=== PATIENT | female | born 1995 | race Caucasian/White ===

== ENCOUNTER 2017-05-11 12:39 | Emergency (ER) | payer BC ==
[~2017-05-11] VITALS: Ht 154.9 cm; Wt 70.3 kg
[2017-05-11 12:40] VITALS: BP 130/82
== END 2017-05-11 16:16 | disposition home or self-care (01) ==
LOC: ER 12:39
DX: J34.0 Abscess, furuncle and carbuncle of nose (principal); G43.909 Migraine, unspecified, not intractable, without status migrainosus

== ENCOUNTER 2019-03-08 12:20 | Emergency (ER) | payer OTHER ==
[~2019-03-08] VITALS: Ht 157.5 cm; Wt 82.6 kg
[2019-03-08] MEDS ORDERED: AMITRIPTYLINE H25 M2 PO (13:07)
[2019-03-08] MEDS ORDERED: CONTRAVE ER 8-1 EACH PO (13:07)
[2019-03-08] MEDS ORDERED: SULFAMETHOXAZO1 EAC1 PO (13:08)
[2019-03-08 13:30] LABS: ABSOLUTE NEUTROPHILS 4.2 thou/uL (1.4-8.2); BASOPHILS 0.3 % (0.0-2.0); EOSINOPHILS 0.8 % (0.0-3.0); HEMATOCRIT 47.6 % (37.0-47.0); HEMOGLOBIN 16.3 gm/dL (12.0-15.0); LYMPHOCYTES 21.3 % (24.0-44.0); MCH 31.1 pg (26.0-34.0); MCHC 34.2 g/dL (28.0-37.0); MCV 90.9 fL (80.0-100.0); MONOCYTES 6.3 % (1.0-8.0); PLATELET COUNT 245 thou/uL (150-400); POLYS 71.3 % (36.0-66.0); RBC 5.23 mil/uL (4.20-5.00); RDW 13.8 % (10.5-14.5)
[2019-03-08 13:40] LABS: URINE BILIRUBIN NEGATIVE (Negative); URINE BLOOD 3+ (Negative); URINE CLARITY CLEAR; URINE COLOR YELLOW; URINE GLUCOSE-RANDOM* NEGATIVE (Negative); URINE KETONES NEGATIVE (Negative); URINE LEUKOCYTES-REFLEX NEGATIVE (Negative); URINE NITRITE-REFLEX NEGATIVE (Negative); URINE PROTEIN (DIPSTICK) NEGATIVE (Negative); URINE SPECIFIC GRAVITY <= 1.005 (1.005-1.035); URINE UROBILINOGEN 0.2 E.U./dl (0.2-1.0)
[2019-03-08 13:47] LABS: ANION GAP 10 mmol/L (7-16); BUN 7 mg/dL (7-18); CALCIUM 9.7 mg/dL (8.5-10.1); CHLORIDE 103 mmol/L (98-107); CO2 25 mmol/L (21-32); GLUCOSE 104 mg/dL (74-106); POTASSIUM 3.7 mmol/L (3.5-5.1); SODIUM 138 mmol/L (136-145)
[2019-03-08 13:48] LABS: TROPONIN-I <0.06 ng/mL (<0.06)
[2019-03-08 13:48] LABS: CASTS None Seen /LPF (None Seen); SQUAMOUS 0-3 Few /LPF (0-3)
[2019-03-08 13:49] LABS: BACTERIA-REFLEX None Seen /HPF (None Seen); CRYSTALS None Seen /LPF (None Seen); URINE RBC 0-2 Rare /HPF (0-2); URINE WBC-REFLEX None Seen /HPF (0-5)
[2019-03-08 14:49] VITALS: BP 125/78
[2019-03-08] MEDS ORDERED: ZOFRAN ODT4 MG PO (15:25)
--- NOTE | 2019-03-10 08:53 | EKG ---
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1995 Requested By: Jakub Wolff Order Number: [id number] MD: Travis Desai Measurements Intervals [place] Rate: 103 P: 39 [place]: 125 QRS: 30 QRSD: 85 T: 5 QT: 336 QTc: 440 Interpretive Statements Sinus tachycardia Otherwise no significant abnormality No previous ECG available for comparison Electronically Signed On 03-10-2019 8:53:31 CDT by Travis Desai [email or web address] ��������������������������������������������� <ELECTRONICALLY SIGNED> ���������������������������������������� By: Travis Desai MD, [facility] ��������������������������������������������� 03/10/19 [id number] Travis Desai MD, FACC /EPI
== END 2019-03-08 15:17 | disposition home or self-care (01) ==
LOC: ER 12:20
PROVIDERS: Emergency Medicine; Physician Assistant
DX: N92.0 Excessive and frequent menstruation with regular cycle (principal); R42 Dizziness and giddiness; G43.909 Migraine, unspecified, not intractable, without status migrainosus